=== PATIENT | female | born 1985 | race African-American/Black ===

== ENCOUNTER 2016-12-11 13:14 | Emergency (ER) | payer MEDICAID, SELFPAY ==
[~2016-12-11] VITALS: Ht 162.6 cm; Wt 83.9 kg
[~2016-12-11 13:14] MED LIST: CYCLOBENZAPRINE10 MG ORAL; IBUPROFEN600 M1 PO; NKM; PRENATAL TABLE1 EAC2 PO
[2016-12-11] MEDS ORDERED: Metoclopramide 10mg/2ml Inj IVP ONE (13:45)
[2016-12-11] MEDS ORDERED: DiphenhydrAMINE 50mg/ml Inj IVP ONE (13:45)
[2016-12-11 14:25] LABS: APPEARANCE,URINE SLIGHTLY CLOUDY; KETONES,URINE NEGATIVE (NEGATIVE); LEUKOCYTE ESTERASE ,URINE 1+ (NEGATIVE); NITRITE,URINE NEGATIVE (NEGATIVE); PH,URINE 6.5 (4.5-8.0); PROTEIN,URINE NEGATIVE (NEGATIVE); UROBILINOGEN,URINE NORMAL MG/DL (0.0-1.0)
[2016-12-11 14:26] LABS: BASOPHILS % (AUTO) 1.8 % (0.0-2.0); EOSINOPHILS % (AUTO) 2.4 % (0.0-3.0); LYMPHOCYTES % (AUTO) 51.5 % (20.0-45.0); MEAN CORPUSCULAR HEMOGLOBIN 28.8 PG (27.0-31.0); MEAN CORPUSCULAR HGB CONC 32.2 G/DL (32.0-36.0); MEAN CORPUSCULAR VOLUME 89 FL (80-99); MEAN PLATELET VOLUME 6.3 FL (6.5-10.1); MONOCYTES % (AUTO) 7.5 % (1.0-10.0); NEUTROPHILS % (AUTO) 36.9 % (45.0-75.0); PLATELET COUNT 390 K/UL (150-450); RED BLOOD COUNT 5.04 M/UL (4.20-5.40); RED CELL DISTRIBUTION WIDTH 11.7 % (11.6-14.8); WHITE BLOOD COUNT 4.4 K/UL (4.8-10.8)
[2016-12-11 14:29] VITALS: BP 122/74
[2016-12-11 14:37] LABS: BACTERIA,URINE FEW /HPF; MUCUS,URINE FEW /LPF (NONE/OCC); SQUAMOUS EPITHELIAL CELL,UR FEW /LPF (NONE/OCC)
[2016-12-11 14:42] LABS: ALANINE AMINOTRANSFERASE 14 U/L (3-33); ALBUMIN/GLOBULIN RATIO 1.1 (1.0-2.7); ANION GAP 13 (5-15); ASPARTATE AMINO TRANSFERASE 17 U/L (5-40); CARBON DIOXIDE 26 mEQ/L (20-30); CHLORIDE 100 mEQ/L (98-107); CREATININE 0.7 mg/dL (0.5-0.9); GLOMERULAR FILTRATION RATE > 60 mL/min (>60); HEMOLYSIS 4; POTASSIUM 3.7 mEQ/L (3.4-4.9); SODIUM 139 mEQ/L (135-145); TOTAL PROTEIN 7.9 g/dL (6.6-8.7)
[2016-12-11 16:01] VITALS: BP 131/51
--- NOTE | 2016-12-11 16:01 | Diagnostic Imaging Report ---
Indication: Headache Technique: Contiguous 5 mm thick transaxial imaging of the head obtained in a Siemens Sensation [address] scanner. Soft tissue and bone windows generated. Total Dose length Product (DLP): [address] Dose Index Volume (CTDIvol): 70.38 mGy Comparison: none Findings: There is a small cystic focus demonstrated within the right syed radiata just above the lateral ventricle. The cystic focus contains an eccentric focus of calcification. 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 No edema or hemorrhage noted. Differential may include granulomatous disease. The ventricles and basal cisterns appear normal. There is no midline shift. The bones are unremarkable. Paranasal sinuses are clear. Impression: Unusual cystic focus with eccentric calcification right syed radiata. 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 No edema, mass effect or acute intracranial hemorrhage. The CT scanner at [facility] is accredited by the [employer] and the scans are performed using dose optimization techniques as appropriate to a performed exam including Automatic Exposure control.
[2016-12-11] MEDS ORDERED: LORATADINE10 M2 PO (16:13)
[2016-12-11] MEDS ORDERED: FLONASE ALLERG9.9 ML NS (16:13)
[2016-12-11] MEDS ORDERED: ZOFRAN ODT4 MG ORAL (16:13)
[2016-12-11] MEDS ORDERED: CIPROFLOXACIN500 M2 ORAL (16:13)
--- NOTE | 2016-12-11 16:13 | Emergency Room Report ---
History of Present Illness General Chief Complaint: Headache Source: Patient Present Illness HPI 31 y/o female c/o new onset of YEN x 2 days. States that she had some n/v from flu symptoms and while throwing up induced a severe right sided YEN. States pain was sudden onset right side of head with photophobia and nausea. States she does not regularly get HAs and that she went to [facility] for evaluation yesterday. States that she was there for 6 hours and was getting an IV and labs completed and was pending CT scan but ultimately left due to having a poor experience at the hospital stating she would just go to another ER the next day if her sxs continued. States her current pain is 8/10 and unchanged overall from initial onset 2 years ago. States that she has cousins, aunts and uncles who have had brain aneurysms in their mid 30's and wants to make sure she is not having one currently. States sxs are worse with being in the light and better with being a dark room. States she took ibuprofen w/o improvement. Admits to having right ear pain, coughing and nasal congestion. Denies any loss of vision, neck stiffness, fever, numbness, paralysis, CP, SOB, abd pain, rash, ALOC, facial droop / weakness, incontinence or extremity weakness. Allergies: Coded Allergies: PENICILLINS (Verified Allergy, Severe, rash, 06/13/13) Patient History Past Medical History: see triage record Pertinent Family History: none Last Menstrual Period: 11/22/16 Now: No Reviewed Nursing Documentation: PMH: Agreed, PSxH: Agreed Nursing Documentation-PMH Past Medical History: No Stated History Review of Systems All Other Systems: negative except mentioned in HPI Physical Exam Vital Signs Date Time Temp Pulse Resp B/P Pulse Ox O2 Delivery O2 Flow Rate FiO2 12/11/16 13:46 98.4 95 15 119/72 99 Room Air Sp02 EP Interpretation: reviewed, normal General Appearance: no apparent distress, alert, GCS 15, non-toxic Head: normocephalic, atraumatic Eyes: bilateral eye EOMI, bilateral eye Fundiscopic - normal. No papilledema, bilateral eye PERRL, bilateral eye normal inspection, bilateral eye photophobia ENT: hearing grossly normal, no angioedema, normal voice, uvula midline, nasal congestion, tonsillar swelling, pharyngeal erythema, other - Bilateral TMs red and bulging. Turbinates red and swollen. Sinuses NTTP Neck: full range of motion, no meningismus, no bony tend, no carotid bruits, supple/symm/no masses Respiratory: chest non-tender, lungs clear, normal breath sounds, speaking full sentences Cardiovascular #1: regular rate, rhythm, no edema, no murmur, no rub Gastrointestinal: non tender, soft Musculoskeletal: back normal, gait/station normal, normal range of motion, non- tender Neurologic: alert, oriented x3, responsive, medical scientific liaison III-XII nml as tested, motor strength/tone normal, DTRs symmetric, sensory intact, speech normal Psychiatric: judgement/insight normal, memory normal, mood/affect normal, no suicidal/homicidal ideation Skin: normal color, no rash, warm/dry, well hydrated Lymphatic: no adenopathy Medical Decision Making PA Attestation Dr. Jimenez my supervising physician with whom patient management has been discussed with. Diagnostic Impression: Primary Impression: Migraine headache Qualified Codes: G43.001 - Migraine without aura, not intractable, with status migrainosus Additional Impressions: Otitis media of both ears Qualified Codes: H65.113 - Acute and subacute allergic otitis media (mucoid) ( sanguinous) (serous), bilateral Acute cystitis Qualified Codes: N30.01 - Acute cystitis with hematuria ER Course Pt. presents to the ED c/o headache Ddx considered but are not limited to migraine, meningitis, cerebral hemorrhage , CVA, sinusitis, tension headache, cluster headache Vital signs: are WNL, pt. is afebrile H&PE are most consistent with migraine with AOM and UTI ORDERS: CBC, CMP, Urine Preg, CT Head w/o contrast ED INTERVENTIONS: Benadryl, Phenergan. DISCHARGE: At this time pt. is stable for d/c to home. Discussed with patient risks and benefits of performing LP. Advised no way to r/o 100% subarachnoid hemorrhage w/o LP. Patient states her pain is currently 3/10 w/o photophobia, nausea or nuchal rigidity. After shared decision making, patient states she does not want LP referring to when she had epidural during L&D, and we agreed to treat for bladder and ear infections and to wait and watch if YEN worsens to return and to LP at that time. Will provide printed patient care instructions, and any necessary prescriptions. Care plan and follow up instructions have been discussed with the patient prior to discharge. Laboratory Tests Test 12/11/16 14:04 12/11/16 14:05 Urine HCG, Qualitative Negative White Blood Count 4.4 K/UL (4.8-10.8) L Red Blood Count 5.04 M/UL (4.20-5.40) Hemoglobin 14.5 G/DL (12.0-16.0) Hematocrit 45.0 % (37.0-47.0) Mean Corpuscular Volume 89 FL (80-99) Mean Corpuscular Hemoglobin 28.8 PG (27.0-31.0) Mean Corpuscular Hemoglobin Concent 32.2 G/DL (32.0-36.0) Red Cell Distribution Width 11.7 % (11.6-14.8) Platelet Count 390 K/UL (150-450) Mean Platelet Volume 6.3 FL (6.5-10.1) L Neutrophils (%) (Auto) 36.9 % (45.0-75.0) L Lymphocytes (%) (Auto) 51.5 % (20.0-45.0) H Monocytes (%) (Auto) 7.5 % (1.0-10.0) Eosinophils (%) (Auto) 2.4 % (0.0-3.0) Basophils (%) (Auto) 1.8 % (0.0-2.0) Urine Color Pale yellow Urine Appearance Slightly cloudy Urine pH 6.5 (4.5-8.0) Urine Specific [place] 1.010 (1.005-1.035) Urine Protein Negative (NEGATIVE) Urine Glucose (UA) Negative (NEGATIVE) Urine Ketones Negative (NEGATIVE) Urine Occult Blood 3+ (NEGATIVE) H Urine Nitrite Negative (NEGATIVE) Urine Bilirubin Negative (NEGATIVE) Urine Urobilinogen Normal MG/DL (0.0-1.0) Urine Leukocyte Esterase 1+ (NEGATIVE) H Urine RBC 2-4 /HPF (0 - 2) H Urine WBC 5-10 /HPF (0 - 2) H Urine Squamous Epithelial Cells Few /LPF (NONE/OCC) Urine Bacteria Few /HPF (NONE) Urine Mucus Few /LPF (NONE/OCC) H Sodium Level 139 mEQ/L (135-145) Potassium Level 3.7 mEQ/L (3.4-4.9) Chloride Level 100 mEQ/L (98-107) Carbon Dioxide Level 26 mEQ/L (20-30) Anion Gap 13 (5-15) Blood Urea Nitrogen 6 mg/dL (7-23) L Creatinine 0.7 mg/dL (0.5-0.9) Estimate Glomerular Filtration Rate > 60 mL/min (>60) Glucose Level 98 mg/dL (74-106) Calcium Level 9.0 mg/dL (8.6-10.2) Total Bilirubin 0.3 mg/dL (0.0-1.2) Aspartate Amino Transferase (AST) 17 U/L (5-40) Alanine Aminotransferase (ALT) 14 U/L (3-33) Alkaline Phosphatase 80 U/L (35-104) Total Protein 7.9 g/dL (6.6-8.7) Albumin 4.3 g/dL (3.5-5.2) Globulin 3.6 g/dL Albumin/Globulin Ratio 1.1 (1.0-2.7) CT/MRI/US Diagnostic Results CT/MRI/US Diagnostic Results : Imaging Test Ordered: CT Head w/o contrast Impression No acute pathology Last Vital Signs Date Time Temp Pulse Resp B/P Pulse Ox O2 Delivery O2 Flow Rate FiO2 12/11/16 14:29 98.3 92 14 122/74 98 Room Air Status: unchanged Reevaluation Impression Patient was sleeping comfortably at bedside when she was woken up for reevaluation. Patient's pain is much improved. States she feels ready to go home. Disposition: HOME, SELF-CARE Condition: Stable Scripts Ondansetron Odt* (ZOFRAN ODT*) 4 Mg Tab.rapdis 4 MG ORAL Q8H Y for Nausea & Vomiting, #20 TAB 0 Refills Prov: SABRY,TAMEEM P.A. 12/11/16 Loratadine (LORATADINE) 10 Mg Tablet 10 MG PO DAILY for 14 Days, #14 TAB Prov: SABRY,TAMEEM P.A. 12/11/16 Fluticasone Propionate (Flonase Allergy Relief) 9.9 Ml [place].susp 2 SPRAYS NS DAILY for 7 Days, #10 ML Prov: SABRY,TAMEEM P.A. 12/11/16 Ciprofloxacin Hcl* (CIPROFLOXACIN HCL*) 500 Mg Tablet 500 MG ORAL EVERY 12 HOURS, #14 TAB 0 Refills Prov: GUZMAN MAYNARD 12/11/16 Referrals: NOT CHOSEN [facility],REFERRING (PCP) Patient Instructions: Migraine Headache, Otitis Media, Adult, Urinary Tract Infection Additional Instructions: Advised patient to go to the ER immediately if you experience a headache that is sudden and becomes severe within a few seconds or minutes, or that could be described as "the worst headache of your life", or if headache is severe and occurs with a fever or stiff neck, occurs with a seizure, personality changes, confusion, or passing out, begins quickly after strenuous exercise or minor injury, or if headache is new and occurs with weakness, numbness, or difficulty seeing. While migraine headaches can sometimes cause these symptoms, you should be evaluated urgently the first time these symptoms appear. Return sooner if sxs worsen or do not improve. In regards to ear infection and sinus congestion, patient should return to clinic if their symptoms last more than 10 days, or if your symptoms get better at first but then get worse. Patient instructed to take an [id number] pain reliever to reduce the pain, and to rinse your nose and sinuses with salt water a few times a day. Patient advised to NOT take an Pseudafed for her symptoms. Go to the ER if you experience any: fever higher than 102.5, sudden and severe pain in the face and head, trouble seeing or seeing double, trouble thinking clearly, swelling or redness around one or both eyes, or trouble breathing or a stiff neck. GUZMAN MAYNARD Dec 11, 2016 16:13
[2016-12-11 16:27] VITALS: BP 131/51
== END 2016-12-11 16:32 | disposition home or self-care (01) ==
LOC: EMR 13:55
DX: G43.001 Migraine without aura, not intractable, with status migrainosus (principal); H65.113 Acute and subacute allergic otitis media (mucoid) (sanguinous) (serous), bilateral; N30.01 Acute cystitis with hematuria; Z88.0 Allergy status to penicillin
CPT/HCPCS: 36415; 70450; 80053; 81001; 81025; 85025; 96374; 96375; 99284; J1200; J2765

== ENCOUNTER 2018-09-28 11:04 | Emergency (ER) | payer MEDICAID, OTHER ==
[~2018-09-28] VITALS: Ht 160 cm; Wt 86.2 kg
[~2018-09-28 11:04] MED LIST changes: +CIPROFLOXACIN500 M2 ORAL; +FLONASE ALLERG9.9 ML NS; +LORATADINE10 M2 PO; +ZOFRAN ODT4 MG ORAL
--- NOTE | 2018-09-28 11:42 | NUR ---
ED Nurse Note: patient walked into ED patient clipped her nail on the right index finger and accidentally nicked her right index finger nail on 09/21/18. Went to [facility] on 09/22/18 and since then her right index finger nail was hurting. PAtient presents with swelling on the right index finger report pain that radiates to the right thumb.
[2018-09-28 11:47] VITALS: BP 118/76
[2018-09-28] MEDS ORDERED: Lidocaine 1% MPF 10mg/ml 5ml INJ ONE (12:00)
[2018-09-28] MEDS ORDERED: Cephalexin 500mg cap ORAL ONE (12:15)
[2018-09-28] MEDS ORDERED: Bactrim-DS 1 tab ORAL ONE (12:15)
--- NOTE | 2018-09-28 14:06 | Emergency Room Report ---
History of Present Illness General Chief Complaint: Upper Extremity Injury Source: Patient Present Illness HPI A week ago the patient was trying to remove some of her calluses on her fingers. She was cutting them. Afterwards she started having pain and swelling of her right index finger tip. The pain is severe at this time and pressure. She rates the pain 10/10. There is no numbness. She denies fevers or chills. History of eczema. No chest pain, palpitations, nausea, vomiting, diarrhea, dysuria, abdominal pain , shortness of breath, depression, visual changes, headache. She is right-handed. Allergies: Coded Allergies: PENICILLINS (Verified Allergy, Severe, rash, 06/13/13) Patient History Past Medical History: see triage record Social History: Denies: smoking Social History Narrative Works at a [employer] Now: No Reviewed Nursing Documentation: PMH: Agreed; PSxH: Agreed Review of Systems All Other Systems: negative except mentioned in HPI Physical Exam Vital Signs Date Time Temp Pulse Resp B/P (MAP) Pulse Ox O2 Delivery O2 Flow Rate FiO2 09/28/18 11:42 98.1 88 17 118/76 96 Room Air Sp02 EP Interpretation: reviewed, normal General Appearance: well appearing, no apparent distress Head: normocephalic, atraumatic Eyes: bilateral eye normal inspection, bilateral eye PERRL ENT: hearing grossly normal, normal voice, moist mucus membranes Neck: full range of motion, supple Respiratory: no respiratory distress, speaking full sentences Cardiovascular #1: regular rate, rhythm Cardiovascular #2: 2+ radial (R) - Good capillary refill Musculoskeletal: gait/station normal, normal range of motion, swelling - Right fingertip Neurologic: alert, normal gait Psychiatric: mood/affect normal Skin: other - Swollen right index finger tip with some pus under the medial distal aspect of the nail no paronychia Procedures Incision and Drainage Incision and Drainage : Consent: Verbal Site: L index fingertip Blade Size: 11 I & D Procedure: betadine prep, sterile drapes applied, sterile dressing applied, gauze wick placed Wound Location: upper extremity Wound's Depth, Shape: superficial Wound Length (cm): 0 - 0.5 Wound Explored: contaminated Irrigated w/ Saline (ccs): 5 Anesthesia: 1% Lidocaine - Digital block Volume Anesthetic (ccs): 5 Splint Applied?: No Patient Tolerated: Well Complications: None Progress Digital block repeated. Pus expressed from incision. The nail was treponemed. Pus was expressed from under the nail tip also. A wick was placed. Patient tolerated the procedure well. Medical Decision Making Diagnostic Impression: Primary Impression: Paronychia ER Course Patient presents with swollen fingertip with pus under the nail. Differential includes felon, paronychia amongst others. Antibiotics are indicated. Also incision and drainage is indicated. Please see procedure note. Patient was advised to return to have the wick removed and also with care afterwards. Patient stable for outpatient observation and treatment. Last Vital Signs Date Time Temp Pulse Resp B/P (MAP) Pulse Ox O2 Delivery O2 Flow Rate FiO2 09/28/18 14:30 98.0 88 17 118/76 96 Room Air Status: improved Disposition: HOME, SELF-CARE Condition: Improved Scripts Bacitracin (Bacitracin) 28.4 Gm Oint...g. 1 APPLIC TOPIC BID, #20 GM Prov: Ramon Craig MD 09/28/18 Tramadol Hcl* (ULTRAM*) 50 Mg Tablet 50 MG ORAL Q6H PRN for For Pain, #6 TAB 0 Refills Prov: Ramon Craig MD 09/28/18 Ibuprofen* (MOTRIN*) 600 Mg Tablet 600 MG ORAL Q6H PRN for For Pain, #20 TAB Prov: Ramon Craig MD 09/28/18 Cephalexin* (KEFLEX*) 500 Mg Capsule 500 MG ORAL EVERY 6 HOURS, #28 CAP Prov: Ramon Craig MD 09/28/18 Trimethoprim/Sulfamethoxazole 160/800* (BACTRIM DS TABLET*) 1 Each Tablet 1 TAB ORAL Q12H, #14 TAB 0 Refills Prov: Ramon Craig MD 09/28/18 Referrals: [facility]ERR[facility] (PCP) Ramon Craig MD Sep 28, 2018 14:06
[2018-09-28] MEDS ORDERED: CEPHALEXIN500 MG ORAL (14:10)
[2018-09-28] MEDS ORDERED: TRAMADOL HCL50 MG ORAL (14:10)
[2018-09-28] MEDS ORDERED: BACTRIM DS TAB1 EAC1 ORAL (14:10)
[2018-09-28] MEDS ORDERED: IBUPROFEN600 MG ORAL (14:10)
[2018-09-28] MEDS ORDERED: Bacitracin Oint UD TOPIC ONE (14:15)
[2018-09-28] MEDS ORDERED: BACITRACIN15 GM TOPIC (14:16)
[2018-09-28 14:30] VITALS: BP 118/76
--- NOTE | 2018-09-28 14:30 | NUR ---
ER DISCHARGE NOTE: Patient is cleared to be discharged per ERMD, pt is aox4, on room air, with stable vital signs. pt was given dc and prescription instructions, pt was able to verbalize understanding, pt id band and iv site removed without complications. pt is able to ambulate with steady gait. pt took all belongings.
== END 2018-09-28 14:30 | disposition home or self-care (01) ==
LOC: EMR 12:00
DX: L03.011 Cellulitis of right finger (principal); Z88.0 Allergy status to penicillin
CPT/HCPCS: 10060; 99283; Z7502

== ENCOUNTER 2018-09-30 10:47 | Emergency (ER) | payer OTHER ==
[~2018-09-30] VITALS: Ht 160 cm; Wt 86.2 kg
[~2018-09-30 10:47] MED LIST changes: +BACITRACIN15 GM TOPIC; +BACTRIM DS TAB1 EAC1 ORAL; +CEPHALEXIN500 MG ORAL; +IBUPROFEN600 MG ORAL; +TRAMADOL HCL50 MG ORAL
[2018-09-30] MEDS ORDERED: NKM (10:52)
--- NOTE | 2018-09-30 11:20 | NUR ---
ED Nurse Note:md barry pt. pt to catherine caballero prior to wick removal
--- NOTE | 2018-09-30 11:40 | Emergency Room Report ---
History of Present Illness General Chief Complaint: Wound Recheck/Suture Removal Source: Patient Present Illness HPI 33-year-old female with recent fingertip infection, had a gauze wick placed 2 days ago, is on oral antibiotics, has been compliant, and reports fingers feeling better, just pain with palpation. He denies any worsening of the redness, and reports and feels much improved since wick was placed. It is not draining anything. She denies fevers, arm pain, any other symptoms. Allergies: Coded Allergies: PENICILLINS (Verified Allergy, Severe, rash, 06/13/13) Patient History Last Menstrual Period: 09/26/18 Reviewed Nursing Documentation: PMH: Agreed; PSxH: Agreed Nursing Documentation-PMH Past Medical History: No Stated History Review of Systems Constitutional: Denies: fever Eye: Denies: acuity changes Respiratory: Denies: cough, shortness of breath Cardiovascular: Denies: chest pain Gastrointestinal: Denies: nausea, vomiting Skin: Denies: rash Neurological: Denies: headache Physical Exam Vital Signs Date Time Temp Pulse Resp B/P (MAP) Pulse Ox O2 Delivery O2 Flow Rate FiO2 09/30/18 10:50 98.2 97 18 107/75 98 Room Air General Appearance: well appearing, no apparent distress Head: normocephalic, atraumatic ENT: hearing grossly normal, normal voice Neck: full range of motion, supple Respiratory: no respiratory distress, speaking full sentences Musculoskeletal: no calf tenderness Neurologic: alert, normal gait Psychiatric: mood/affect normal Skin: no rash, other - R index finger distal tuft with guaze, no purulent drainage, minimal edema, no erythema, hole in nail without discharge or underlying hematoma Lymphatic: no adenopathy - no R brachial lad Medical Decision Making Diagnostic Impression: Primary Impression: Encounter for wound re-check Additional Impression: Encounter for dressing change or suture removal ER Course gauze wick removed, finger well-appearing with no active infection or further drainage, patient dc'd with instructions to continue her abx PO, and start using the topical abx already prescribed. Instructed to return for redness, swelling, increasing pain. Last Vital Signs Date Time Temp Pulse Resp B/P (MAP) Pulse Ox O2 Delivery O2 Flow Rate FiO2 09/30/18 10:50 98.2 97 18 107/75 98 Room Air Disposition: HOME, SELF-CARE Condition: Stable Referrals: [facility]ERR[facility] (PCP) BRONSON FELIX M.D Sep 30, 2018 11:40
[2018-09-30 11:58] VITALS: BP 107/75
--- NOTE | 2018-09-30 12:00 | NUR ---
ED Nurse Note: wound with wick removed by . pt tolerates well. states continued pain. ointment applied and tube gauze dressing applied with finger splint to tip for pt comfort of tip. pt tolerates well. awaits aci
--- NOTE | 2018-09-30 12:16 | NUR ---
ER DISCHARGE NOTE: Patient is cleared to be discharged per ERMD, pt is aox4, on room air, with stable vital signs. pt was given dc instructions adn work note x 2 days pt was able to verbalize understanding, pt is able to ambulate with steady gait. pt took all belongings.
[2018-09-30 12:17] VITALS: BP 107/75
== END 2018-09-30 12:18 | disposition home or self-care (01) ==
LOC: EMR 11:19
DX: S61.200D Unspecified open wound of right index finger without damage to nail, subsequent encounter (principal); X58.XXXD Exposure to other specified factors, subsequent encounter; Z48.00 Encounter for change or removal of nonsurgical wound dressing
CPT/HCPCS: 99281